=== PATIENT | female | born 1950 | race African-American/Black ===

== ENCOUNTER → 2018-05-06 | Outpatient (CLI) | payer OTHER | LOC: RAD 01:52 | DX: Z12.31 Encounter for screening mammogram for malignant neoplasm of breast (principal) ==

== ENCOUNTER → 2019-07-27 | Outpatient (CLI) | payer OTHER | LOC: BC 13:10 | DX: Z12.31 Encounter for screening mammogram for malignant neoplasm of breast (principal) ==

== ENCOUNTER 2020-10-25 22:07 | Inpatient (IN) | payer OTHER ==
[~2020-10-25] VITALS: Ht 162.6 cm; Wt 93.9 kg
[2020-10-25 22:14] VITALS: BP 173/83
[2020-10-25 22:15] VITALS: BP 173/83
[2020-10-25 22:29] LABS: ABSOLUTE NEUTROPHILS 6.7 thou/uL (1.4-8.2); BASOPHILS 1.1 % (0.0-2.0); LYMPHOCYTES 20.4 % (24.0-44.0); MCH 29.2 pg (26.0-34.0); MCHC 33.2 g/dL (28.0-37.0); MCV 88.1 fL (80.0-100.0); MONOCYTES 6.6 % (1.0-8.0); PLATELET COUNT 326 thou/uL (150-400); POLYS 67.9 % (36.0-66.0); RBC 4.43 mil/uL (4.20-5.00); RDW 13.2 % (10.5-14.5); WBC 9.8 thou/uL (4.0-11.0)
[2020-10-25 22:47] LABS: ALBUMIN 3.6 g/dL (3.4-5.0); ANION GAP 7 mmol/L (7-16); BUN 13 mg/dL (7-18); CALCIUM 9.3 mg/dL (8.5-10.1); CHLORIDE 103 mmol/L (98-107); CO2 28 mmol/L (21-32); CREATININE 0.9 mg/dL (0.6-1.0); GLUCOSE 125 mg/dL (74-106); MAGNESIUM 1.8 mg/dL (1.8-2.4); SGOT 18 U/L (15-37); SGPT 30 U/L (14-59); SODIUM 138 mmol/L (136-145); TOTAL BILIRUBIN 0.3 mg/dL (0.2-1.0); TOTAL PROTEIN 8.3 g/dL (6.4-8.2); TROPONIN-I <0.06 ng/mL (<0.06)
[2020-10-25 22:49] LABS: POTASSIUM 2.8 mmol/L (3.5-5.1)
[2020-10-26] VITALS (7 sets, daily range): BP systolic 146–173; BP diastolic 66–90
[2020-10-26 06:04] LABS: CALCIUM 9.2 mg/dL (8.5-10.1); CREATININE 0.7 mg/dL (0.6-1.0); POTASSIUM 3.5 mmol/L (3.5-5.1)
--- NOTE | 2020-10-26 07:35 | EKG ---
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 : 1950 Requested By: Yojana Linder Order Number: [id number] MD: Florentin Hollis Measurements Intervals [place] Rate: 76 P: 2 AK: 150 QRS: -27 QRSD: 150 T: 172 QT: 423 QTc: 476 Interpretive Statements Sinus rhythm Ventricular premature complex Left bundle branch block Baseline wander in lead(s) II No previous ECG available for comparison Electronically Signed On 10-26-2020 7:35:21 CDT by Florentin Hollis [email or web address] <ELECTRONICALLY SIGNED> By: Florentin Hollis MD, [facility] 10/26/20 0735 653 Florentin Hollis MD, FACC /EPI
[2020-10-26 09:20] LABS: CHOLESTEROL 192 mg/dL (<200); HDL CHOLESTEROL 46 mg/dL (>40); LDL CHOLESTEROL 130 mg/dL (<100); TC:HDL 4.2 Ratio (Not establshd); TRIGLYCERIDE 83 mg/dL (<150); VLDL 17 mg/dL (<40)
--- NOTE | 2020-10-26 15:33 | EKG ---
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 : 1950 Requested By: Shivam Savage Order Number: [id number] MD: Florentin Hollis Measurements Intervals [place] Rate: 116 P: 3 MD: 159 QRS: -29 QRSD: 157 T: 151 QT: 367 QTc: 510 Interpretive Statements Sinus tachycardia Paired ventricular premature complexes Left bundle branch block No previous ECG available for comparison Electronically Signed On 10-26-2020 15:32:55 CDT by Florentin Hollis [email or web address] <ELECTRONICALLY SIGNED> By: Florentin Hollis MD, [facility] 10/26/20 1532 [id number] Florentin Hollis MD, FACRadha /EPI
--- NOTE | 2020-10-26 17:24 | NUR ---
ASSESSMENT CHARTED. MEDS PER MAR - NO CO'S OF PAIN OR NAUSESA - NOAM DIET AND FLUIDS. UP AD ABHINAV IN ROOM NO CO'S OF DIZZINESS - HEADACHE. STARTED ON TOPROLOL ORDERED. STATES COMFORTABLE AT THE PRESENT TIME.
[2020-10-27 00:08] VITALS: BP 157/78
[2020-10-27 04:43] VITALS: BP 144/87
[2020-10-27 08:18] VITALS: BP 131/55
[2020-10-27] MEDS ORDERED: METOPROLOL SUCC25 M1 PO (09:02)
[2020-10-27] MEDS ORDERED: AMLODIPINE BESY10 MG PO (09:03)
[2020-10-27 11:35] VITALS: BP 148/80
[2020-10-27 15:35] VITALS: BP 161/78
[2020-10-27 16:57] VITALS: BP 161/78
--- NOTE | 2020-10-27 19:26 | NUR ---
ASSESSMENT CHARTED - MEDS PER JAMES SANTACRUZ DIET AND FLUIDS. UP AD ABHINAV IN ROOM - NO CO'S OF PAIN OR NAUSEA. CT OF ABDO COMPLETED. PT HOME THIS EVEING- INSTRUCTION RE HOME MEDS/ CARE AND FOLLOW UP GIVEN TO PATIENT - STATED UNDERSTANDING OF INSTRUCTION GIVEN. PT LEFT UNIT ACCOMAPNAIED BY SON. NO CO'S AT TIME OF D/C.
== END 2020-10-27 19:15 | disposition home or self-care (01) | DRG 305 ==
LOC: ER 22:07 → 2N 10-26 01:47 → EROBS 10-26 01:47 → 2N 10-26 02:37
PROVIDERS: Emergency Medicine; Nurse Practitioner Family; ADMIT Hospitalist; ATTEND Hospitalist
DX: I16.0 Hypertensive urgency (principal); K86.2 Cyst of pancreas; I44.7 Left bundle-branch block, unspecified; I10 Essential (primary) hypertension; E87.6 Hypokalemia; R19.00 Intra-abdominal and pelvic swelling, mass and lump, unspecified site; E55.9 Vitamin D deficiency, unspecified; I49.9 Cardiac arrhythmia, unspecified; N85.9 Noninflammatory disorder of uterus, unspecified; R53.81 Other malaise; Z88.2 Allergy status to sulfonamides; Z88.8 Allergy status to other drugs, medicaments and biological substances; Z82.49 Family history of ischemic heart disease and other diseases of the circulatory system; Z79.899 Other long term (current) drug therapy
CPT/HCPCS: 10081

== ENCOUNTER → 2020-11-04 | Outpatient (CLI) | payer OTHER ==
[~2020-11-04] MED LIST: AMLODIPINE BESY10 MG PO; METOPROLOL SUCC25 M1 PO
== END ==
LOC: BC 13:00
PROVIDERS: ATTEND Obstetrics & Gynecology
DX: Z12.31 Encounter for screening mammogram for malignant neoplasm of breast (principal); N64.89 Other specified disorders of breast; N63.10 Unspecified lump in the right breast, unspecified quadrant; N63.20 Unspecified lump in the left breast, unspecified quadrant

== ENCOUNTER → 2021-01-30 | Outpatient (CLI) | payer OTHER | LOC: CAT 09:31 | PROVIDERS: ATTEND Family Medicine | DX: K80.20 Calculus of gallbladder without cholecystitis without obstruction (principal); K57.30 Diverticulosis of large intestine without perforation or abscess without bleeding; R19.00 Intra-abdominal and pelvic swelling, mass and lump, unspecified site ==